=== PATIENT | female | born 1950 | race Caucasian/White ===

== ENCOUNTER 2016-07-18 15:57 | Emergency (ER) | payer MEDICARE, BC ==
[~2016-07-18 15:57] MED LIST: ASPI81TA11 PO; BUME1TAB PO; CELE200C PO; HUMA100I3 SQ; ISOS30TA3 PO; LEXA20TA PO; LYRI75CA PO; METO25TA3 PO; NEXI40CA PO; ROSU20 PO; SITA1TAB2 PO; SPIR50TA PO; SPIRCAP INH; TRAM50TA PO; VALA1TAB PO; ZOLP10TA3 PO
[2016-07-18 16:00] VITALS: BP 132/84; PULSE 66; RESP 24; TEMP 98.1; O2SAT 98
--- NOTE | 2016-07-18 17:07 | PD ---
HPI Chief Complaint: Fever Time Seen by Provider: 17:07 Travel History International Travel<30 days: No Contact w/Intl Traveler<30days: No Traveled to known affect area: No History of Present Illness HPI 65-year-old female with a history of hypertension, hyperlipidemia, diabetes, anxiety, asthma presents to the emergency department for evaluation of one day history of chills, nausea and abdominal cramping. Patient states that she woke up early this morning with chills and shaking. States she thought it may be associated with her anxiety so she took her anxiety medication which did not improve her symptoms. States throughout the day the symptoms worsened. States she is also developed some nausea and abdominal cramping. She also has some mild shortness of breath and has had a dry cough for the past 2 days. No modifying factors. Symptoms are moderate in severity. Patient denies any vomiting, diarrhea, constipation, chest pain, wheezing, headache, body aches. Prior abdominal surgeries include cholecystectomy, section and ventral hernia repair with mesh. No other complaints. PFSH Past Medical History Cardiovascular Problems: Yes (HTN) Diabetes: Yes Past Surgical History Cholecystectomy: Yes Hysterectomy: Yes Social History Alcohol Use: No Tobacco Use: No Substance Use: No Allergies-Medications (Allergen,Severity, Reaction): Coded Allergies: No Known Allergies (Verified , 02/26/16) Reported Meds & Prescriptions Reported Meds & Active Scripts Active Naproxen 250 Mg Tab 250 Mg PO BID PRN 5 Days Metoprolol Tartrate 25 Mg Tab 12.5 Mg PO BID Isosorbide Mononitrate ER (Isosorbide Mononitrate) 30 Mg Steff 30 Mg PO DAILY Reported Diclofenac Topical 1% Gel 1 Applic TOPICAL DAILY PRN Nexium (Esomeprazole DR) 40 Mg Capdr 40 Mg PO DAILY Lexapro (Escitalopram Oxalate) 20 Mg Tab 20 Mg PO DAILY Aspirin EC (Aspirin) 81 Mg Tabdr 81 Mg PO DAILY Valacyclovir (Valacyclovir HCl) 1 Gm Tab 1,000 Mg PO BID Zolpidem (Zolpidem Tartrate) 10 Mg Tab 10 Mg PO HS PRN Tramadol (Tramadol HCl) 50 Mg Tab 50 Mg PO TID PRN Bumetanide 1 Mg Tab 1 Mg PO DAILY Humalog Kwikpen Pen Inj (Insulin Lispro (Human) Inj) 300 Unit/3 Ml Pen 14 Units SQ TID Spironolactone 50 Mg Tab 50 Mg PO DAILY Crestor (Rosuvastatin Calcium) 20 Mg Tab 20 Mg PO DAILY Lyrica (Pregabalin) 75 Mg Cap 75 Mg PO BID Januvia (Sitagliptin Phosphate) 100 Mg Tab 100 Mg PO DAILY Celebrex (Celecoxib) 200 Mg Cap 200 Mg PO DAILY Review of Systems Except as stated in HPI: all other systems reviewed are Neg Physical Exam Narrative GENERAL: Well-nourished and well-developed pleasant female patient in no acute distress. SKIN: Warm and dry. HEAD: Normocephalic and atraumatic. EYES: No injection, drainage, or hyphema noted. PERRLA. EOMI. ENT: No nasal drainage noted. Oropharynx is clear. NECK: Supple and the trachea is midline. CARDIOVASCULAR: Regular rate and rhythm. RESPIRATORY: Breath sounds are equal bilaterally with no accessory muscle use, wheezing, rhonchi, or crackles. GASTROINTESTINAL: Right upper quadrant tenderness to palpation. No rebound tenderness or guarding. Abdomen is soft and nondistended. MUSCULOSKELETAL: No obvious deformities, swelling, cyanosis, or ecchymosis is present throughout the upper and lower extremities. Patient has full range of motion without any signs of neurovascular compromise. NEUROLOGICAL: Awake, alert, and oriented. Normal speech and gait. Cranial nerves are grossly intact. Data Data Last Documented VS Vital Signs Date Time Temp Pulse Resp B/P Pulse Ox O2 Delivery O2 Flow Rate FiO2 07/18/16 18:46 65 18 137/71 94 Nasal Cannula 2 07/18/16 16:00 98.1 Orders Complete Blood Count With Diff (07/18/16 17:04) Comprehensive Metabolic Panel (07/18/16 17:04) Lipase (07/18/16 17:04) Lactic Acid (07/18/16 17:04) Prothrombin Time / Inr (Pt) (07/18/16 17:04) Act Partial Throm Time (Ptt) (07/18/16 17:04) Urinalysis - C+S If Indicated (07/18/16 17:04) Ct Abd/Pel W Iv Contrast(Rout) (07/18/16 17:04) Iv Access Insert/Monitor (07/18/16 17:04) Ecg Monitoring (07/18/16 17:04) Oximetry (07/18/16 17:04) Ondansetron Inj (Zofran Inj) (07/18/16 17:15) Sodium Chloride 0.9% Flush (Ns Flush) (07/18/16 17:15) Electrocardiogram (07/18/16 17:04) Chest, Single Ap (07/18/16 17:04) Troponin I (07/18/16 17:04) Influenzae A/B Antigen (07/18/16 17:04) Blood Culture (07/18/16 18:39) Sodium Chlor 0.9% 1000 Ml Inj (Ns 1000 M (07/18/16 18:44) Iohexol 350 Inj (Omnipaque 350 Inj) (07/18/16 19:12) Sodium Chlor 0.9% 1000 Ml Inj (Ns 1000 M (07/18/16 19:49) Labs Laboratory Tests Test 07/18/16 07/18/16 17:14 17:15 Urine Color LIGHT-YELLOW Urine Turbidity CLEAR Urine pH 8.5 Urine Specific Decker 1.007 Urine Protein NEG mg/dL Urine Glucose (UA) NEG mg/dL Urine Ketones NEG mg/dL Urine Occult Blood NEG Urine Nitrite NEG Urine Bilirubin NEG Urine Urobilinogen LESS THAN 2.0 MG/DL Urine Leukocyte Esterase NEG Urine RBC LESS THAN 1 /hpf Urine WBC 5 /hpf Urine Squamous Epithelial 3 /hpf Cells Urine Bacteria RARE /hpf Microscopic Urinalysis Comment CULT NOT INDICATED White Blood Count 14.6 TH/MM3 Red Blood Count 4.18 MIL/MM3 Hemoglobin 12.4 GM/DL Hematocrit 38.4 % Mean Corpuscular Volume 92.0 FL Mean Corpuscular Hemoglobin 29.6 PG Mean Corpuscular Hemoglobin 32.2 % Concent Red Cell Distribution Width 15.6 % Platelet Count 246 TH/MM3 Mean Platelet Volume 8.6 FL Neutrophils (%) (Auto) 73.9 % Lymphocytes (%) (Auto) 18.9 % Monocytes (%) (Auto) 5.7 % Eosinophils (%) (Auto) 0.9 % Basophils (%) (Auto) 0.6 % Neutrophils # (Auto) 10.8 TH/MM3 Lymphocytes # (Auto) 2.8 TH/MM3 Monocytes # (Auto) 0.8 TH/MM3 Eosinophils # (Auto) 0.1 TH/MM3 Basophils # (Auto) 0.1 TH/MM3 CBC Comment DIFF FINAL Differential Comment Prothrombin Time 11.2 SEC Prothromb Time International 1.0 RATIO Ratio Activated Partial 28.6 SEC Thromboplast Time Sodium Level 140 MEQ/L Potassium Level 4.0 MEQ/L Chloride Level 105 MEQ/L Carbon Dioxide Level 23.5 MEQ/L Anion Gap 12 MEQ/L Blood Urea Nitrogen 16 MG/DL Creatinine 1.39 MG/DL Estimat Glomerular Filtration 38 ML/MIN Rate Random Glucose 123 MG/DL Lactic Acid Level 2.7 mmol/L Calcium Level 9.8 MG/DL Total Bilirubin 1.0 MG/DL Aspartate Amino Transf 17 U/L (AST/SGOT) Alanine Aminotransferase 24 U/L (ALT/SGPT) Alkaline Phosphatase 120 U/L Troponin I LESS THAN 0.02 NG/ML Total Protein 8.4 GM/DL Albumin 4.4 GM/DL Lipase 421 U/L MDM Medical Decision Making Medical Screen Exam Complete: Yes Emergency Medical Condition: Yes Differential Diagnosis Viral illness versus influenza versus gastroenteritis versus colitis Narrative Course 65-year-old female presents to the emergency room for evaluation of chills, nausea and abdominal cramping. Patient is afebrile, vital signs are stable. She has some mild right upper quadrant tenderness to palpation but otherwise abdominal examination is benign. Lungs are clear to auscultation. IV access is obtained, labs are drawn and sent. Patient is placed on cardiac telemetry and pulse oximetry monitoring. CT of the abdomen and pelvis has been ordered and is pending. CBC shows an elevated white blood count of 14.6. CMP shows renal insufficiency with a creatinine of 1.39, GFR 38. This appears consistent with previous lab values at our facility. Lipase is slightly elevated at 421. Troponin is less than 0.02. Lactic acid is elevated at 2.7. Coags are unremarkable. Urinalysis is unremarkable. Influenza swab is negative. Chest x-ray is negative. CT of the abdomen and pelvis shows stable 1.6 cm left adrenal mass and stable benign-appearing right renal cyst. No changes since 2015. No acute abnormalities. Patient is reassessed and reports that her abdominal discomfort has resolved. She still has chills. She's remained stable here in the ED while receiving fluids. Discussed with the patient's labs and imaging are reassuring. She does have an elevated white blood count and a slightly elevated lactic acid. I suspect the patient has a viral illness. I discussed this with the patient and gave her the option of observation however she would like to be discharged to home and follow-up with her PCP. I discussed with her that should her symptoms worsen she should return immediately to the emergency department. Patient verbalizes understanding and agreement with treatment plan. I discussed the case with my attending physician Dr. Sanders who is aware of the patients history, physical examination findings, and treatment plan. Diagnosis Primary Impression: Chills without fever Additional Impression: Viral syndrome Referrals: Primary Care Physician Patient Instructions: General Instructions, Viral Syndrome (ED) Additional Instructions: Rest. Drink plenty of fluids. Take medication as prescribed with food and a full glass of water. Follow-up with your Primary Care Physician. Return to the ED for any acute worsening of symptoms. Med/Other Pt SpecificInfo: Prescription(s) given Scripts Naproxen 250 Mg [id number] Mg PO BID PRN (PAIN SCALE 1 TO 10) 5 Days Ref 0 Prov:Wai Sanders MD 07/18/16 Disposition: 01 DISCHARGE HOME Condition: Stable Aydee Arizmendi Jul 18, 2016 17:07
[2016-07-18] MEDS ORDERED: SODIUM CHLORIDE 0.9% FLUSH 10 ML FLUSH IV FLUSH PRN (17:15)
[2016-07-18] MEDS ORDERED: ONDANSETRON HCL 4 MG/2 ML VIAL IVP ONE (17:15)
[2016-07-18 17:16] VITALS: O2SAT 97
[2016-07-18] MEDS ORDERED: DICL1GEL7 TOPICAL (17:32)
--- NOTE | 2016-07-18 17:55 | RADRPT ---
EXAM DATE/TIME: 07/18/2016 17:25 [facility] COMPARISON: CHEST SINGLE AP, February 26, 2016, 20:27. INDICATIONS : Short of Breath MEDICAL HISTORY : Cardiovascular disease. diabetes SURGICAL HISTORY : Cholecystectomy. Hysterectomy ENCOUNTER: Initial ACUITY: 1 day PAIN SCORE: 0/10 LOCATION: Bilateral chest FINDINGS: A single view of the chest demonstrates the lungs to be symmetrically aerated without evidence of mas s, infiltrate or effusion. Hyperaeration bilaterally. Stable marked chronic changes in the right lung base. The cardiomediastinal contours are unremarkable. Osseous structures are intact. CONCLUSION: No acute disease. No significant change has occurred. Kirit Munguia MD on July 18, 2016 at 17:53 Board Certified Radiologist. This report was verified electronically.
[2016-07-18 18:00] LABS: AUTOMATED NEUTROPHIL # 10.8 TH/MM3 (1.8-7.7); BASOPHIL # 0.1 TH/MM3 (0-0.2); BASOPHIL % 0.6 % (0.0-2.0); EOSINOPHIL # 0.1 TH/MM3 (0-0.4); EOSINOPHIL % 0.9 % (0.0-4.0); HEMATOCRIT 38.4 % (35.0-46.0); HEMO FLAGS DIFF FINAL; LYMPH % 18.9 % (9.0-44.0); LYMPHOCYTE # 2.8 TH/MM3 (1.0-4.8); MEAN CORPUSCULAR HEMOGLOBIN 29.6 PG (27.0-34.0); MEAN CORPUSCULAR HGB CONC 32.2 % (32.0-36.0); MONO % 5.7 % (0.0-8.0); NEUT % 73.9 % (16.0-70.0); PLATELET COUNT 246 TH/MM3 (150-450); RED BLOOD COUNT 4.18 MIL/MM3 (4.00-5.30); RED CELL DISTRIBUTION WIDTH 15.6 % (11.6-17.2); WHITE BLOOD COUNT 14.6 TH/MM3 (4.0-11.0)
[2016-07-18 18:05] LABS: APTT (PATIENT) 28.6 SEC (24.3-30.1); PROTHROMBIN TIME - PATIENT 11.2 SEC (9.8-11.6)
[2016-07-18 18:06] LABS: BACTERIA, URINE RARE /hpf; BLOOD, URINE NEG (NEG); COMMENT (UR) CULT NOT INDICATED; CULTURE IF INDICATED CULT NOT INDICATED; GLUCOSE,URINE NEG (NEG); KETONE, URINE NEG (NEG); NITRITE,URINE NEG (NEG); PH, URINE 8.5 (5.0-8.5); SQUAMOUS EPITHELIAL CELL URINE 3 /hpf (0-5); URINE COLOR LIGHT-YELLOW (YELLW/STRAW)
[2016-07-18 18:20] LABS: ALT (GPT) 24 U/L (10-53); ANION GAP 12 MEQ/L (5-15); AST (GOT) 17 U/L (15-37); BICARBONATE 23.5 MEQ/L (21.0-32.0); BLOOD UREA NITROGEN 16 MG/DL (7-18); CHLORIDE 105 MEQ/L (98-107); GLOMERULAR FILTRATION RATE 38 ML/MIN (>89); SODIUM (NA) 140 MEQ/L (136-145)
[2016-07-18 18:23] LABS: ALKALINE PHOSPHATASE 120 U/L (45-117)
[2016-07-18] MEDS ORDERED: SODIUM CHLOR 0.9% 1000 ML INJ 1,000 ML IV SCH ×2 (18:44→19:49)
[2016-07-18 18:46] VITALS: BP 137/71; PULSE 65; RESP 18; O2SAT 94
[2016-07-18] MEDS ORDERED: IOHEXOL 350 MG/ML 10 ML VIAL (for RAD DIAG) IV ONE (19:12)
--- NOTE | 2016-07-18 19:43 | RADRPT ---
EXAM DATE/TIME: 07/18/2016 19:07 [facility] COMPARISON: CT ABDOMEN & PELVIS W CONTRAST, April 06, 2015, 15:13. INDICATIONS : Upper quadrant abdominal pain with nausea. IV CONTRAST: 95 cc Omnipaque 350 (iohexol) IV ORAL CONTRAST: No oral contrast ingested. RADIATION DOSE: 19.13 CTDIvol (mGy) MEDICAL HISTORY : Cardiovascular disease. Hypertension. Diabetes mellitus type 2. SURGICAL HISTORY : Hysterectomy. Cholecystectomy. ENCOUNTER: Initial ACUITY: 1 day PAIN SCALE: 6/10 LOCATION: Bilateral upper quadrant TECHNIQUE: Volumetric scanning of the abdomen and pelvis was performed. Using automated exposure control and ad justment of the mA and/or kV according to patient size, radiation dose was kept as low as reasonably achievable to obtain optimal diagnostic quality images. FINDINGS: LOWER LUNGS: The visualized lower lungs are clear. LIVER: Homogeneous density without lesion. There is no dilation of the biliary tree. No gallbladder, surgi nena removed.. SPLEEN: Normal size without lesion. PANCREAS: Within normal limits. KIDNEYS: Normal in size and shape. There is no mass, stone or hydronephrosis. A few stable benign-appearing c ysts are again noted involving the right kidney. The largest cyst measures 2.6 cm along the lower kadi e. ADRENAL GLANDS: Stable left adrenal mass measuring 1.6 cm. Right adrenal gland unremarkable. VASCULAR: There is no aortic aneurysm. BOWEL/MESENTERY: The stomach, small bowel, and colon demonstrate no acute abnormality. There is no free intraperitone al air or fluid. No inflammatory changes. Still the colon. ABDOMINAL WALL: Status post previous abdominal surgery. Anterior abdominal wall hernia repair which appears to be int act. No significant change. RETROPERITONEUM: A few nonspecific lymph nodes are again seen at the para-aortic level. This is improved compared to t prior study.. BLADDER: No wall thickening or mass. REPRODUCTIVE: Within normal limits. INGUINAL: There is no lymphadenopathy or hernia. MUSCULOSKELETAL: Within normal limits for patient age. Primary degenerative changes. CONCLUSION: 1. Stable 1.6 cm left adrenal mass. 2. Stable benign-appearing right renal cysts. 3. No new or significant changes compared to 2014. Kirit Munguia MD on July 18, 2016 at 19:36 Board Certified Radiologist. This report was verified electronically.
[2016-07-18] MEDS ORDERED: NAPR250T PO (20:00)
[2016-07-18 21:06] VITALS: BP 141/80; PULSE 66; RESP 19; O2SAT 100
[2016-07-18 21:07] VITALS: BP 109/57
--- NOTE | 2016-07-19 10:26 | EKG ---
Date Performed: 07/18/2016 Time Performed: 17:18:07 PTAGE: 65 years EKG: Sinus rhythm LOW QRS VOLTAGE IN PRECORDIAL LEADS INCOMPLETE RIGHT BUNDLE BRANCH BLOCK ST DEVIATION AND MODERATE T -WAVE ABNORMALITY, CONSIDER ANTEROLATERAL ISCHEMIA ST DEVIATION AND MODERATE T-WAVE ABNORMALITY, CONS IDER INFERIOR ISCHEMIA ABNORMAL ECG INTERPRETATION BASED ON A DEFAULT AGE OF 40 YEARS Compared to felipe or tracing no significant change PREVIOUS TRACING : 02/27/2016 02.46 DOCTOR: Cassi Mejia Interpretating Date/Time 07/19/2016 10:24:20
== END 2016-07-18 21:08 | disposition home or self-care (01) ==
LOC: NEPC 15:57
DX: B34.9 Viral infection, unspecified (principal); R68.83 Chills (without fever); I10 Essential (primary) hypertension; E11.9 Type 2 diabetes mellitus without complications; F41.9 Anxiety disorder, unspecified; E78.00 Pure hypercholesterolemia, unspecified; R94.31 Abnormal electrocardiogram [ECG] [EKG]; J45.909 Unspecified asthma, uncomplicated; Z79.4 Long term (current) use of insulin
CPT/HCPCS: 71010; 74177; 80053; 81001; 83605; 83690; 84484; 85025; 85610; 85730; 86403; 87040; 87205; 87804; 93005; 96374; 99284; J2405; J7030; Q9967

== ENCOUNTER 2017-04-15 10:04 | Day surgery (SDC) | payer MEDICARE, BC ==
[~2017-04-15] VITALS: Ht 154.9 cm; Wt 102.6 kg
[~2017-04-15 10:04] MED LIST changes: -ASPI81TA11 PO; +ASPI81TA23 PO; +DICL1GEL7 TOPICAL; +NAPR250T4 PO; -SPIRCAP INH
[2017-04-15] MEDS ORDERED: ASPIRIN 81 MG CHEW TAB PO SCH (10:45)
[2017-04-15 10:47] VITALS: BP 124/67; PULSE 61; RESP 18; TEMP 98.6; O2SAT 94
[2017-04-15 10:53] LABS: AUTOMATED NEUTROPHIL # 8.9 TH/MM3 (1.8-7.7); BASOPHIL # 0.1 TH/MM3 (0-0.2); BASOPHIL % 0.8 % (0.0-2.0); EOSINOPHIL # 0.2 TH/MM3 (0-0.4); EOSINOPHIL % 1.5 % (0.0-4.0); HEMATOCRIT 33.8 % (35.0-46.0); HEMOGLOBIN 11.3 GM/DL (11.6-15.3); LYMPH % 17.2 % (9.0-44.0); LYMPHOCYTE # 2.1 TH/MM3 (1.0-4.8); MEAN CELL VOLUME 93.4 FL (80.0-100.0); MEAN CORPUSCULAR HEMOGLOBIN 31.1 PG (27.0-34.0); MEAN CORPUSCULAR HGB CONC 33.3 % (32.0-36.0); MEAN PLATELET VOLUME 8.2 FL (7.0-11.0); MONOCYTE # 0.8 TH/MM3 (0-0.9); NEUT % 73.5 % (16.0-70.0); PLATELET COUNT 234 TH/MM3 (150-450); RED BLOOD COUNT 3.62 MIL/MM3 (4.00-5.30); RED CELL DISTRIBUTION WIDTH 16.3 % (11.6-17.2); WHITE BLOOD COUNT 12.1 TH/MM3 (4.0-11.0)
[2017-04-15 11:00] LABS: PROTHROMBIN TIME - PATIENT 10.3 SEC (9.8-11.6)
[2017-04-15] MEDS ORDERED: VITA250T3 PO (11:08)
[2017-04-15] MEDS ORDERED: VENTAER INH (11:08)
[2017-04-15] MEDS ORDERED: SUVO1TAB3 PO (11:08)
[2017-04-15] MEDS ORDERED: DULA0.5I SQ (11:08)
[2017-04-15] MEDS ORDERED: ISOS10TA PO (11:10)
[2017-04-15 11:11] LABS: BICARBONATE 27.8 MEQ/L (21.0-32.0); CALCIUM 8.6 MG/DL (8.5-10.1); CREATININE 1.17 MG/DL (0.50-1.00)
[2017-04-15] MEDS ORDERED: ALDA50TA2 PO (11:13)
[2017-04-15] MEDS ORDERED: HEPARIN-NS/PF INJ 1,000 ML ONE ×2 (12:15→12:25)
[2017-04-15] MEDS ORDERED: MIDAZOLAM HCL 2 MG/2 ML VIAL ONE (12:26)
[2017-04-15] MEDS ORDERED: FUROSEMIDE 40 MG/4 ML VIAL ONE (12:51)
--- NOTE | 2017-04-15 13:20 | CATHPROC ---
[facility] HIS Report Study Information Study Number Admission Scheduled Start Study Start [id number] Apr 15 2017 10:04AM 04/15/2017 Apr 15 2017 11:55AM [place] Service Cardiac Catheterization Admit Source Facility Department Other [facility] - Production Control Expediter Physician and Clinical Staff Initial Gene Ceja Margaret, RN Circulator Clark RN, Jon RecordBrandi Gudino,RT(R) Scrub Sirisha Mills,PEYMAN TECH2 Procedures Performed Procedure Location (Site) Vessel Name Coronary Angiograms LCA Left Coronary Coronary Angiograms RCA Right Coronary LV Gram-hand inj. LV LV Ventricle Equipment Time Corrections Corporal Description Size Mfg Part Number Used/Scraped CATHETER, FR5 SWAN TONI 12:02 [employer] FR 5 [id number] *[id number] Used MONITOR TRANSDUCER, TRUWAVE [id number] 12:02 BERNARD ANG * Used W/STOCKCOCK *[id number] [id number] *[id number] *[id number] 12:02 [employer] INDUSTRIES PACK, CCL CUSTOM * Used *[id number] 12:02 [employer] PACER PEN, SKIN DUAL W/ RULER * Used *[id number] 12:03 [employer] MEDICAL SHEATH, FR4.5 PRELUDE 11CM FR 4.5 Used [id number] 12:02 [employer] MEDICAL SHEATH, FR5.5 PRELUDE 11CM FR 5.5 Used 038ACT# [id number] 12:02 [employer] MEDICAL WIRE, 3MMJ .035 180CM 180CM Used *[id number] 12:02 NAMIC MANIFOLD, 4 PORT * Used *[id number] 12:02 [employer] OMNIPAQUE, 350 MG, 150ML 150ML [id number] Used [id number] 12:02 [employer] [facility] BLANKET,WARM AIR CCL * Used *[id number] History: Current Medications Medication Dosage/Unit Route Frequency Last Date/Time Taken Celebrex LYRICA CRESTOR Insulin ASA TRAMADOL Imdur History: Allergies Allergy Reaction NKDA History: Risk Factors Family History of Hypertension Dyslipidemia Previous CT Previous Heart Failure Premature CAD No Yes No No Yes Prior Valve Prior PCI Prior CABG Surgery No Yes No Cerebrovascular Peripheral Artery Chronic Lung On Dialysis Diabetes Diabetes Therapy Disease Disease Disease No No No Yes Yes Insulin History: Stress Tests Stress or Imaging Studies Performed Yes Standard Exercise Stress Test No Stress Echo No Stress Test SPECT Stress Test SPECT Result Stress Test SPECT Ischemia Risk/Extent Yes Positive High Stress Test CMR No Cardiac CTA Coronary Calcium Score No No Labs Hgb (g/dl) Hct (%) RBC (MIL/MM3) WBC (l/cumm) Platelets (thousands) 11.60-17.00 35.00-51.00 4.00-5.90 4.00-11.00 150.00-450.00 11.0 33 3.6 12 234 Glucose (mg/dl) BUN (mg/dl) Creatinine (mg/dl) BUN:Creatinine (1:x) 74.00-106.00 7.00-18.00 0.50-1.30 10.00-20.00 170 17 1.1 15.5 Na (meq/l) K (meq/l) 136.00-145.00 3.50-5.10 141 4.2 INR (PTT:PT) 0.90-1.10 1 Medication Medication Total Dose (Bolus/Oral) Medication Total Dosage/Unit 1% XYLOCAINE 20 mL LASIX 25 mg VERSED 1 mg Medications (Bolus/Oral) Medication Time Given Dosage/Unit Administered By Reason VERSED 04/15/2017 12:39:05 PM 1 mg Emily Woodward 1 mg VERSED given in lab by Emily Woodward RN in Left Antecubital via Peripheral IV. Ordered by Gene Lazcano. 1% XYLOCAINE 04/15/2017 12:40:57 PM 20 mL Gene Bee 20 mL 1% XYLOCAINE given in lab by Gene Bee in Right Groin via Subcutaneous. LASIX 04/15/2017 12:53:27 PM 25 mg Emily Woodward 25 mg LASIX given in lab by Emily Woodward RN in Left Antecubital via Peripheral IV. Ordered by Gene Lazcano. Medication (Drip) Medication Time Given Dosage/Unit Concentration/Unit Diluent (ml) Solution IV Solutions 04/15/2017 12:25:25 PM 0 mL (IV) 500 NaCl .9 IV Solutions given in lab by Emily Woodward RN in Left Antecubital via Peripheral IV. Pump/Drip Fl ow = 20 ml/hr using NaCl .9. Ordered by Gene Bee. Initial Case Assessment Cardiovascular HR Rhythm NIBP Chest Pain 54 SR 126/74 0 Skin color Skin Normal Warm Dry Circulatory - Right Pulses Dorsalis Pedis Femoral 1 1 Scale (0,1,2,3,4,d) Circulatory - Left Pulses Dorsalis Pedis Femoral 1 1 Scale (0,1,2,3,4,d) Neurological State Oriented to time-place- Alert Moves all extremities person Respiration - General Respiration Rate SpO2 (%) (B/min) 9 97 Chronological Log Time Study Chronological Log 12:10:13 Patient arrived via Bed. 12:11:21 Patient Name, D.O.B, / Armband Verified By R.N. 12:11:22 Consent signed by the physician and the patient and verified by the Production Control Expediter staff. 12:11:23 Pre-op and post- op instructions given; patient acknowledges understanding of instruction s. Vitals capture started with the following parameters, Patient=Adult, Interval=5 min, Initial Rjmfaknw=322 mmHg, 12:13:55 Deflation Rate=5 mmHg, Cuff placed on Left Arm 12:13:57 Presedation assessment performed by Production Control Expediter RN. 12:14:20 Verbal Stimulation=2 Physical Stimulation=2 Airway=2 Respiration=2 TOTAL=8. (0=absent, 1=li mited, 2=present) 12:14:30 Patient has been NPO for More than 6Hrs. 12:14:32 Skin Breakdown/none per patient 12:14:36 HR=54 bpm, ZACJ=893/72 mmhg, SpO2=97.0 %, Resp=9 B/min 12:14:45 Patient Warmer Placed on the Table. 12:14:46 [place] Prominences Protected 12:14:52 History and physical on the chart or being dictated. 12:20:12 HR=55 bpm, ZECJ=843/67 mmhg, SpO2=95.0 %, Resp=12 B/min, Christina=10 12:24:38 HR=60 bpm, UFUF=603/69 mmhg, SpO2=97.0 %, Resp=15 B/min 12:25:03 A # 20 IV was noted in the Antecubital (left). Grade = 0 IV Solutions given in lab by Emily Woodward, EBER in Left Antecubital via Peripheral IV. Pump/D rip Flow = 20 ml/hr 12:25:25 using NaCl .9. Ordered by Gene Bee. 12:28:33 Reference ECG taken 12:28:45 History and physical on the chart or being dictated. Assessment: Initial Case, HR=54 BPM, Rhythm=SR, KTQB=842/74 mmhg, Chest Pain=0, Color=Normal, S kin = Warm, Dry Right Pulses: Ignacio Ped=1, Femoral=1 12:28:46 Left Pulses: Ignacio Ped=1, Femoral=1 Neurological: State=Alert, Ox3, SHORT Respiration: Resp=9 B/min, SpO2=97 % 12:29:50 Bilateral groins prepped with 2% chlorhexidine, and draped after a 3 minute waiting time. 12:30:26 HR=73 bpm, YHGW=242/69 mmhg, SpO2=98.0 %, Resp=15 B/min 12:32:52 Pressure channel 1 zeroed. 12:34:24 MD paged 12:34:38 HR=56 bpm, UXCI=947/72 mmhg, SpO2=96.0 %, Resp=10 B/min 12:35:28 MD responded 12:36:00 MD arrived. 12:39:05 1 mg VERSED given in lab by Emily Woodward, RN in Left Antecubital via Peripheral IV. Ord ered by Gene Bee. Time Out. Correct patient, correct procedure, correct physician, power injector loaded, or not loaded with contrast with 12:39:41 surgical team present. Time Out Concurred by MD and individual staff in procedure. 12:39:55 Case Start 12:40:10 HR=56 bpm, TVPO=470/65 mmhg, SpO2=98.0 %, Resp=17 B/min 12:40:57 20 mL 1% XYLOCAINE given in lab by Gene Bee in Right Groin via Subcutaneous. 12:41:23 Access site was Right Femoral Vein. 12:41:34 A SHEATH, FR5.5 PRELUDE 11CM FR 5.5 was advanced into the Fem Vein (right) using the Percut aneous technique. 12:42:29 Access site was Right Femoral Artery. 12:42:36 A SHEATH, FR4.5 PRELUDE 11CM FR 4.5 was advanced into the Fem Art (right) using the Percuta neous technique. 12:43:24 Saturation: Site=Ao (Aorta) , O2=96.5 %, Hgb=11 gm/dl, Condition=Condition 1. Used in calcu lation. 12:44:03 A CATHETER, FR5 SWAN TONI MONITOR FR 5 was inserted via Fem Vein (right) 12:44:38 HR=59 bpm, KZNP=821/64 mmhg, SpO2=96.0 %, Resp=20 B/min Recorded Pressure: PCW, HR=59, Condition=Condition 1 12:44:58 (Pulmonary Capillary Wedge) PCW Recorded Pressure: MPA, HR=62, Condition=Condition 1 12:45:21 (Main Pulmonary Artery) MPA 33/17/24 12:45:47 Saturation: Site=PA (Pulmonary Artery) , O2=67.3 %, Hgb=11 gm/dl, Condition=Condition 1. Us ed in calculation. Recorded Pressure: RV, HR=62, Condition=Condition 1 12:46:12 (Right Ventricle) RV 36/10/15 Recorded Pressure: RA, HR=62, Condition=Condition 1 12:46:24 (Right Atrium) RA 16/14/13 12:46:49 Saturation: Site=RA (Right Atrium) , O2=68.6 %, Hgb=11 gm/dl, Condition=Condition 1. Used i n calculation. 12:47:27 [place] Toni Catheter Removed A JR 4.0 INFINITI CATHETER FR 4 was advanced over a wire. OMNIPAQUE, 350 MG, 150ML 150ML was us ed for 12:47:30 injections. 12:47:55 The LV was manually injected with 6 cc's and visualized. OMNIPAQUE, 350 MG, 150ML 150ML use d. Recorded Pressure: LV, HR=62, Condition=Condition 1 12:47:56 (Left Ventricle) LV 124/12/18 Recorded Pressure: LV, Ao, HR=60, Condition=Condition 1 12:48:13 (Left Ventricle) LV 104/9/14, (Aorta) Ao 114/58/81 12:48:35 The RCA was injected and visualized at various angles. OMNIPAQUE, 350 MG, 150ML 150ML used . 12:49:10 Catheter was removed A JL 4.0 INFINITI CATHETER FR 4 was advanced over a wire. OMNIPAQUE, 350 MG, 150ML 150ML was us ed for 12:49:25 injections. 12:49:35 HR=59 bpm, BNHD=491/68 mmhg, SpO2=96.0 %, Resp=25 B/min 12:50:29 The LCA was injected and visualized at various angles. OMNIPAQUE, 350 MG, 150ML 150ML used . 12:51:25 Catheter was removed 12:51:31 Case End 12:53:18 Arterial Sheath removed; pressure applied to access site. 12:53:27 25 mg LASIX given in lab by Emily Woodward, RN in Left Antecubital via Peripheral IV. Ord ered by Gene Bee. 12:54:36 HR=57 bpm, VBGP=014/68 mmhg, SpO2=95.0 %, Resp=15 B/min 12:59:39 HR=59 bpm, FGOJ=601/68 mmhg, SpO2=97.0 %, Resp=10 B/min 13:01:13 Sterile dressing applied to site 13:01:14 No case complications noted. 13:01:15 Holding Area notified. 13:01:35 A Left and Right Heart Cath was performed. 13:02:47 Venous Sheath removed; pressure applied to access site. 13:04:36 HR=56 bpm, CLGA=450/72 mmhg, SpO2=96 %, Resp=18 B/min 13:09:31 HR=60 bpm, HIDM=593/68 mmhg, SpO2=96.0 %, Resp=19 B/min 13:11:23 Vitals capture stopped. 13:15:28 Patient moved to [facility] End Study - Contrast Media Used In Study Contrast Total Opened (mL) Total Used (mL) Total Wasted (mL) Omnipaque 20 20 0 End Study - Maximum Contrast Load Max Contrast Load (mL) 466.3 End Study - Radiation Exposure Fluoro Time (minutes) 1.6 End Study - Patient Disposition Complications Transferred To Interventional Outcome No Outpatient Bed No attempt made
[2017-04-15] MEDS ORDERED: BACITRACIN OINT 0.9 GM PKT TOP ONE (13:45)
[2017-04-15] MEDS ORDERED: MISC INFORMATION XX ONE (13:45)
[2017-04-15] MEDS ORDERED: SODIUM CHLORIDE 0.9% FLUSH 10 ML FLUSH IV FLUSH PRN (13:45)
--- NOTE | 2017-04-15 13:59 | MA ---
cc: ROMY WRIGHT M.D. DATE: 04/15/2017 PROCEDURE PERFORMED Right heart catheterization, left heart catheterization, left ventriculography, coronary angiography. INDICATION New onset cardiac symptom with severe dyspnea on exertion, anginal equivalent, unstable angina, [place] [employer] Class III angina, [place] Heart [employer] Class III congestive heart failure, [id number] anteroapical fixed defect on the myocardial perfusion study, high-risk nuclear stress test, ejection fraction 60%, 1-[address]-segment depression, lead 2, 3, AVF, V3, V4 on nuclear stress test, coronary artery disease and diabetes mellitus. PROCEDURE The patient was brought to the cardiac catheterization lab, prepped and draped in the usual sterile fashion. 10 ccs of 1% lidocaine was used to locally anesthetize the right common femoral artery. A 4-Bruneian sheath was placed in the right common femoral artery. A 5-Bruneian sheath was placed in the right common femoral vein. Right heart catheterization was performed first with following findings: Pulmonary capillary wedge pressure was 28/25-21, PA pressure 33/17-24, RV pressure 36/10-15, RA pressure 16/14-13. Cardiac output by Martín is 5.7 liters per minute. Cardiac index by Martín is 2.9 liters per meter squared per minute. SVR is 954.4 dynes. On room air the femoral artery sat is 96.5%. Pulmonary artery sat is 67.3%, right atrial sat 68.6%. Left heart catheterization was then performed with a 4-Bruneian JR-4, JL-4 catheter with the following findings: LV pressure is 124/12-18. Ejection fraction 60%. Right coronary artery is dominant. Initially there does not appear to be any significant disease in the ostial proximal segment, however, on the second and third images there appears to be slight kinking of the vessel due to descending of the JR-4 diagnostic catheter with some spasm into about 40-50% stenosis. Left main coronary artery has no significant disease angiographically. Left circumflex vessel has mild subtle disease in the proximal midsegment up to 10% angiographically. There is a very small obtuse marginal vessel coming off the proximal left circ which is less than 0.5 mm in diameter with no significant obstructive disease. Second obtuse marginal vessel, again very small 0.5 mm in diameter. No significant obstructive disease. Third obtuse marginal vessel is a large vessel approaching the apex. No significant obstructive disease. The remainder of the AV groove left circumflex vessel terminates into two small posterolateral arteries approximately 0.5 to 1 mm in diameter with no significant obstructive disease. The LAD is transapical. First diagonal artery is a small vessel approximately 1.5 mm in diameter with mild diffuse disease in the ostial proximal segment up to 20% angiographically. The second diagonal artery has a reference vessel diameter approximately 2.25 mm with an ostial 50-60% stenosis and a 45 degree angulation off the LAD. At that bifurcation the LAD has a focal 20-30% stenosis. The LAD beyond this diagonal vessel is very tortuous and transapical. CONCLUSION 1. Angiographically mild to moderate three-vessel coronary artery disease in right dominant system as detailed above. 2. Elevated LVDP and pulmonary capillary wedge pressure with preserved LV systolic function suggestive of diastolic dysfunction. 3. EF of 60%. 4. Recommend medical management of coronary artery disease, cardiac risk factor modification. 5. 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 Will assess her clinical response to this when she returns to the office next week for followup, which I have instructed her to do on April 21, 2017. Otherwise recommend medical management of coronary artery disease, cardiac risk factor modification ___ guidelines and continue aspirin 81 mg daily and isosorbide. Also note, the patient does appear to have some degree of coronary spasm, it appears to be catheter-based but cannot completely rule out endothelial dysfunction. Will continue her on her isosorbide mononitrate 30 mg daily empirically. MD SUNI Hampton/[place] /12:47 PM /1:09 PM
[2017-04-15] MEDS ORDERED: SODIUM CHLORIDE 0.9% FLUSH 10 ML FLUSH IV FLUSH SCH (21:00)
--- NOTE | 2017-04-16 23:19 | EKG ---
Date Performed: 04/15/2017 Time Performed: 11:06:02 PTAGE: 66 years EKG: Sinus bradycardia with sinus arrhythmia. Prolonged QT interval rSr'(V1) - probable normal v ariant Extensive ST-T changes may be due to myocardial ischemia Low QRS voltages in precordial leads Abnormal ECG PREVIOUS TRACING : 07/18/2016 17.18 Compared to prior tracing no significant change DOCTOR: Kosta Dalton Interpretating Date/Time 04/16/2017 23:19:02
== END 2017-04-15 15:48 | disposition home or self-care (01) ==
LOC: HDOC 10:04 → HDIC 10:05 → HDOC 15:48
PROVIDERS: ATTEND Internal Medicine Interventional Cardiology
DX: I25.10 Atherosclerotic heart disease of native coronary artery without angina pectoris (principal); I50.9 Heart failure, unspecified; I10 Essential (primary) hypertension; E78.5 Hyperlipidemia, unspecified; E11.9 Type 2 diabetes mellitus without complications; J45.909 Unspecified asthma, uncomplicated; Z79.01 Long term (current) use of anticoagulants; Z79.4 Long term (current) use of insulin
CPT/HCPCS: 80048; 82810; 85025; 85610; 93005; 93460; 99152; C1769; C1893; J1644; J1940; J2250

== ENCOUNTER → 2017-05-17 | Outpatient (CLI) | payer MEDICARE, BC ==
[~2017-05-17] MED LIST changes: +ALDA50TA2 PO; +DULA0.5I SQ; +ISOS10TA PO; -ISOS30TA3 PO; -METO25TA3 PO; -NAPR250T4 PO; -NEXI40CA PO; -SPIR50TA PO; +SUVO1TAB3 PO; +VENTAER INH; +VITA250T3 PO; -ZOLP10TA3 PO
--- NOTE | 2017-05-20 09:41 | RSPPFT ---
DATE OF PROCEDURE: 05/17/17 COMMENTS: VOLUMES DYNAMIC: FVC and FEV1 mildly reduced. STATIC: TLC low normal; RV and FRC normal. FLOWS: FEV1% mildly reduced; FEF 25-75 moderately reduced. DIFFUSION: Low normal. FLOW VOLUME LOOP: Pattern of variable intrathoracic airways obstruction. IMPRESSION: Mild obstructive ventilatory defect with no significant hyperinflation or reduction in diffusion. Airways resistance is increased. There is improvement post-bronchodilator.
== END ==
LOC: HRSP 10:48
PROVIDERS: ATTEND Internal Medicine
DX: R06.02 Shortness of breath (principal)
CPT/HCPCS: 36600; 82805; 94060; 94618; 94726; 94729